=== PATIENT | male | born 1935 | race Caucasian/White ===

== ENCOUNTER → 2018-03-04 | Outpatient (CLI) | payer MEDICARE, BC | LOC: EDBD → M.MRI 11:14 | DX: S46.212A Strain of muscle, fascia and tendon of other parts of biceps, left arm, initial encounter (principal); M75.102 Unspecified rotator cuff tear or rupture of left shoulder, not specified as traumatic; M19.012 Primary osteoarthritis, left shoulder; X58.XXXA Exposure to other specified factors, initial encounter; Y93.89 Activity, other specified; Y92.89 Other specified places as the place of occurrence of the external cause; Y99.8 Other external cause status ==

== ENCOUNTER 2018-05-04 07:23 | Inpatient (IN) | payer MEDICARE, BC ==
[2018-04-23 09:19] LABS: ABSOLUTE EOSINOPHILS 0.2 thou/uL (0.0-0.7); ABSOLUTE LYMPHOCYTES 0.8 thou/uL (0.8-5.3); ABSOLUTE MONOCYTES 0.4 thou/uL (0.0-1.2); ABSOLUTE NEUTROPHILS 2.7 thou/uL (1.6-8.1); BASOPHILS 0.5 %; HEMATOCRIT 47.5 % (42.0-52.0); HEMOGLOBIN 15.7 gm/dL (14.0-18.0); LYMPHOCYTES 20.3 %; MCH 29.6 pg (26.0-34.0); MCHC 33.1 g/dL (28.0-37.0); MCV 89.5 fL (80.0-100.0); MONOCYTES 9.1 %; MPV 8.3 fl. (7.2-11.1); NUCLEATED RBCS 0 /100WBC; PLATELET COUNT* 189 thou/uL (150-400); POLYS 65.1 %; RBC 5.31 mil/uL (4.50-6.00); RDW-CV 16.7 % (10.5-14.5); WBC 4.1 thou/uL (4.0-11.0)
[2018-04-23 09:25] LABS: APTT 27.8 Seconds (25.0-31.3); PROTIME 10.2 Seconds (9.20-11.50)
[2018-04-23 10:08] LABS: ALBUMIN 3.4 g/dL (3.4-5.0); CALCIUM 8.7 mg/dL (8.5-10.1); CREATININE 1.2 mg/dL (0.6-1.3); POTASSIUM 3.9 mmol/L (3.5-5.1); TOTAL BILIRUBIN 0.6 mg/dL (<0.1-1.0); TOTAL PROTEIN 6.7 g/dL (6.4-8.2)
[2018-04-23 11:13] LABS: ESR (SEDRATE) 2 mm/hr (0-20)
--- NOTE | 2018-04-23 16:41 | EKG ---
[place] [address] ELECTROCARDIOGRAM REPORT Name: TRAN CALI Room: [facility]#: [id number] Admission: Attend Phys: Sal Bojorquez DO Discharge: Date of : 39 Report #: [id number] THIS REPORT FOR: //name// [facility] Test Date: 2018-04-23 Test Time: 09:25:26 Pat Name: TRAN CALI Department: Room: Gender: M Fleet Sales Associate: : 1935 Requested By: Sal Bojorquez Order Number: [id number] Trent MD: Adair Mitchell Measurements Intervals [place] Rate: 65 P: 53 OH: 191 QRS: 93 QRSD: 105 T: 7 QT: 397 QTc: 413 Interpretive Statements Sinus rhythm Right axis deviation No previous ECG available for comparison Electronically Signed On 04-23-2018 16:41:27 CASKET COVERER by Adair Mitchell [email or web address] <ELECTRONICALLY SIGNED> By: Adair Mitchell MD, [facility] 04/23/18 1641 0925 0925 Adair Mitchell MD, FACC /EPI
[~2018-05-04] VITALS: Ht 177.8 cm; Wt 77.1 kg
[~2018-05-04 07:23] MED LIST: B12INJ IM; CALCIUM WITH M1 EACH PO; CIALIS5 MG PO; ESTRADIOL IM; FLOMAX0.4 MG PO; MACROBID 100 M100 M1 PO; MULTIVITAMINS1 EAC7 PO; OMEGA 3 1,0001 EACH PO; PROSCAR 5MG TABL5 MG PO; PROSTATE HEALT1 EAC1 PO; TESTOSTERON100 MG/ML IM; UBIQUINOL100 MG PO; VITAMIN C1000 MG PO; VITAMIN D5000 UNIT PO; ZYRTEC10 M5 PO
[2018-05-04 07:30] VITALS: BP 144/71
[2018-05-04 14:05] VITALS: BP 118/59
--- NOTE | 2018-05-04 14:10 | NUR ---
PATIENT TRANSFERRED FROM PACU TO ROOM 110. ALERT AND ORIENTED. DROWSY. DENIES PAIN. POLAR CARE IN PLACE LEFT SHOULDER. DRESSING C/D/I. SCD'S AND TEDS IN PLACE. IVF INFUSING ORDERED. TOLERATING LIQUIDS. REFUSED LUNCH. EDUCATED ON FALL PREVENTION. BED ALARM SET. AND DAUGHTER AT BEDSIDE. CALL LIGHT WITHIN REACH. WILL CONTINUE TO MONITOR.
[2018-05-04 16:00] VITALS: BP 101/62
--- NOTE | 2018-05-04 16:28 | NUR ---
PATIENT REMAINS ALERT AND ORIENTED. DENIES PAIN. LEFT ARM IMMOBILIZER IN PLACE. RADIAL PULSES 2+. TOLERATING LIQUIDS. IVF INFUSING ORDERED. SLEEPING THIS AFTERNOON. SCD'S AND TEDS IN PLACE. VSS. CAPNO IN PLACE. O2 2L. AT BEDSIDE. CALL LIGHT WITHIN REACH. WILL CONTINUE TO MONITOR. BED ALARM SET.
[2018-05-04 19:45] VITALS: BP 94/60
--- NOTE | 2018-05-04 23:18 | NUR ---
RECIEVED REPORT AND ASSUMED CARE OF PT AT 1945. PT DENIES PAIN OR DISCOMFORT. PT REPORTS SENSATION RETURNING TO FINGERS. POLAR PACK TO SHOULDER. VITAL SIGNS WITHIN NORMAL LIMITS. CALL LIGHT IN REACH. PT USING APPROPRIATELY.
[2018-05-05 00:54] VITALS: BP 110/70
[2018-05-05 04:18] VITALS: BP 105/65
[2018-05-05 05:04] LABS: HEMATOCRIT 38.6 % (42.0-52.0); HEMOGLOBIN 12.8 gm/dL (14.0-18.0); MCH 29.5 pg (26.0-34.0); MCHC 33.1 g/dL (28.0-37.0); MCV 89.2 fL (80.0-100.0); MPV 8.2 fl. (7.2-11.1); NUCLEATED RBCS 0 /100WBC; PLATELET COUNT* 218 thou/uL (150-400); RBC 4.33 mil/uL (4.50-6.00); RDW-CV 16.1 % (10.5-14.5); WBC 11.4 thou/uL (4.0-11.0)
[2018-05-05 05:36] LABS: ALBUMIN 2.8 g/dL (3.4-5.0); CALCIUM 8.3 mg/dL (8.5-10.1); CREATININE 1.2 mg/dL (0.6-1.3); POTASSIUM 4.3 mmol/L (3.5-5.1); TOTAL BILIRUBIN 0.4 mg/dL (<0.1-1.0); TOTAL PROTEIN 5.6 g/dL (6.4-8.2)
[2018-05-05 06:06] LABS: ABSOLUTE LYMPHOCYTES 1.1 thou/uL (0.8-5.3); ABSOLUTE MONOCYTES 0.3 thou/uL (0.0-1.2); ABSOLUTE NEUTROPHILS 9.9 thou/uL (1.6-8.1); PLATELET ESTIMATE ADEQUATE
--- NOTE | 2018-05-05 06:06 | NUR ---
PT UP TO REST ROOM DURING NIGHT WITH STANDBY ASSISTANCE. PT AFEBRILE DURING NIGHT. HEART RATE AND BLOOD PRESSURE WITHIN DEFINED PARAMETERS. PT O O2 AT 4 LITERS TO MAINTAIN O2 SAT > 94%. PT'S PAIN CONTROLLED WITH ORAL PAIN MEDICATIONS DURING NIGHT. PT PROGRESSING TOWARD DISCHARGE GOALS. WILL CONTINUE PLAN OF CARE.
[2018-05-05 09:24] VITALS: BP 118/62
--- NOTE | 2018-05-05 13:34 | NUR ---
SPOKE TO THE PATIENT TO DISCUSS THE PATIENT'S HOME SITUATION, DISCHARGE PLANNING, AND TO INFORM OF THE ROLE OF CM. PATIENT ALERT, ORIENTED, AND INDEPENDENT WITH ADL'S. 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 PATIENT RESIDES AT HOME WITH SPOUSE AND SHE PLANS TO ASSIST HIM WITH CARES AT D/C. PATIENT OWNS 0 DME. PATIENT HAS NO HX OF HH OR SNF AND PLANS TO RETURN HOME INDEPENDENTLY AT D/C. PATIENT INFORMS THAT HE IS OPEN TO HH AT D/C AND WOULD LIKE A REFERRAL SENT TO [facility]. D/C MARZIPAN MOLDER SPOKE TO YARED WITH INTAKE FOR PINCONNING TO INFORM OF THE HH REFERRAL AND POSSIBLE D/C TOMORROW, AND FAXED THE PATIENT'S FACESHEET AND H&P. CM WILL REMAIN AVAILABLE TO ASSIST AND FOLLOW NEEDED.
[2018-05-05 15:26] VITALS: BP 118/64
--- NOTE | 2018-05-05 16:05 | NUR ---
PATIENT REMAINS ALERT AND ORIENTED. PAIN CONTROLLED. SHOWERED WITH OT. PARTICIPATED WITH PT. UP STANDBY ASSIST. VOIDING PER TOILET. BM LAST NIGHT. DRESSING TO LEFT SHOULDER C/D/I. POLAR CARE AND IMMOBILIZER IN PLACE. AT BEDSIDE. BED ALARM IN USE. EDUCATED ON FALL PREVENTION. CALL LIGHT WITHIN REACH. WILL CONTINUE TO MONITOR.
[2018-05-05 21:00] VITALS: BP 108/54
--- NOTE | 2018-05-05 22:48 | NUR ---
INITAL ASSESMENT COMPLETED AT 2100. PT REPORTED PAIN IN LEFT SHOULDER AT THAT TIME. PRN NORCO AND HS MEDS GIVEN AT THAT TIME. CALL LIGHT IN REACH, PT RESTING QUIETLY.
[2018-05-06 08:21] VITALS: BP 112/62
[2018-05-06] MEDS ORDERED: NORCO 5-325 TA1 EACH PO (09:34)
[2018-05-06] MEDS ORDERED: OXYCODONE HCL 55 MG PO (09:35)
[2018-05-06] MEDS ORDERED: ASPIRIN325 PO (09:36)
[2018-05-06 09:38] VITALS: BP 112/62
[2018-05-06 11:49] VITALS: BP 119/65
[2018-05-06] MEDS ORDERED: SENNA PLUS TAB1 EACH PO (11:49)
[2018-05-06 12:10] VITALS: BP 112/62
--- NOTE | 2018-05-06 12:30 | NUR ---
TERMITE EXTERMINATOR HELPER SPOKE TO THE PATIENT TO DISCUSS DISCHARGE PLANNING, HH, AND ELIQUIS PRESCRIPTION AT D/C. PATIENT REQUEST MEDICATION ASSISTANCE TO FILL ELIQUIS HE HAS NO PRESCRITION COVERAGE. RN CALLED IN ELIQUIS TO PATIENT'S PHARMACY. D/C INDIVIDUAL SMALL GROUP INSTRUCTOR CALLED IN 30 EMILE FREE CO-PAY CARD TO THE PATIENT'S PHARMACY, AND CONFIRMED THAT THE PATIENT HAS A $0 CO-PAY FOR THE ELIQUIS. D/C INDIVIDUAL SMALL GROUP INSTRUCTOR INFORMED THE RN AND THE PATIENT OF THE $0 CO-PAY, AND BOTH ARE IN AGREEMENT. D/C INDIVIDUAL SMALL GROUP INSTRUCTOR CONTACTED [facility] TO INFORM OF THE PATIENT'S D/C, AND FAXED THE PATIENT'S D/C ORDERS. [facility] WILL CONTACT THE PATIENT TO ARRANGE VISIT.CM WILL REMAIN AVAILABLE TO ASSIST AND FOLLOW NEEDED.
[2018-05-06] MEDS ORDERED: ELIQUIS2.5 MG PO (12:51)
--- NOTE | 2018-05-06 15:18 | NUR ---
PATIENT DISCHARGED TO HOME WITH HOME HEALTH AT THIS TIME. IV DISCONTINUED. SCRIPTS GIVEN. PATIENT AND SPOUSE VERBALIZE UNDERSTANDING OF DC INSTRUCTIONS.
--- NOTE | 2018-05-11 09:17 | OP ---
[address] [address] OPERATIVE REPORT Name: VIRAJTRAN Lina Room: [address]#: [id number] Admission: 05/04/18 Attend Phys: Americo Guajardo Discharge: 05/06/18 Date of : 39 Report #: [id number] THIS REPORT FOR: //name// CC: Sal Joseph DATE OF SERVICE: 05/04/2018 PREOPERATIVE DIAGNOSIS: Rotator cuff arthropathy, left shoulder. POSTOPERATIVE DIAGNOSIS: Rotator cuff arthropathy, left shoulder. PROCEDURE: Left reverse total shoulder arthroplasty. SURGEON: Sal Bojorquez DO. DENTAL COORDINATOR: Malcom Kruse DO. SECOND EXPLOSIVES OPERATOR: Kehinde Ventura DO. ESTIMATED BLOOD LOSS: 100 mL. COMPLICATIONS: None. DRAINS: None. SPECIMEN REMOVED: None. ANESTHESIA: General with interscalene block. ANTIBIOTICS: Ancef 2 grams IV preoperatively. ORTHOPEDIC IMPLANTS: A 28 Tornier reverse total shoulder arthroplasty system utilizing a size 2 humeral stem with 42 x 30 mm glenosphere and baseplate with low offset tray and +6 polyethylene liner. CONDITION OF PATIENT: Stable to PACU. INDICATIONS: The patient is a pleasant 82-year-old male, seen in my clinic regarding left shoulder pain he has had for quite some time. He had a previous rotator cuff repair quite some time ago. He has had recurrent pain. Repeat MRI demonstrated a rotator cuff tear. He did have x-rays consistent with rotator cuff arthropathy. Due to his age, MRI and x-ray findings, I discussed potential benefit of left reverse total shoulder arthroplasty. I discussed procedure, risks, benefits, complications, indications in detail with him. Risks discussed include but not limited to infection, neurovascular injury, continued or [address] [address] OPERATIVE REPORT Name: TRAN CALI Room: [address]#: [id number] Admission: 05/04/18 Attend Phys: Americo Guajardo Discharge: 05/06/18 Date of : 39 Report #: [id number] worsening pain, no improvement in symptoms, hardware failure, fracture dislocation, DVT, PE and/or anesthesia complications. He did express understanding and wished to proceed with surgery. DESCRIPTION OF PROCEDURE: After consent was obtained, the patient was taken to the operative suite and placed in supine position on the operating table. He was given the benefit of general anesthesia, he was placed in beachchair position, all bony prominences were well padded. Left upper extremity was then sterilely prepped and draped in usual fashion. Preoperative timeout was obtained to confirm the correct patient, procedure and operative site. Surgery began with a standard deltopectoral incision approximately 10 cm in length. Blunt dissection was taken down to the level of the cephalic vein. This was isolated and mobilized laterally throughout the case and protected with blunt retractors throughout the case. The clavipectoral fascia was then incised. Deltoid adhesions were bluntly dissected. A Triplett retractor was placed over the humeral head. Upon evaluating humeral head, he did have a severe rotator cuff delamination and essentially only his subscapularis was intact. At this time, biceps tenotomy was performed, and the subscapularis was elevated off the lesser tuberosity with electrocautery. Hohmann retractor was placed on the inferior humeral neck to protect neurovascular structures throughout the case. The glenohumeral joint was then easily dislocated, and the humeral head was inspected. He had osteophytes throughout as well as eburnation of the bone. We then used a neck cutting guide, and an appropriate proximal femoral neck cut was made. We then began preparing the humerus and sequential broaching was performed, progressed up to a size 2. This gave us a good fit and fill of proximal humerus with good rotational stability. Attention was then turned to the glenoid. Circumferential glenoid release was performed, and labrum was excised with electrocautery. Retractors were placed full visualization, which gave us a good look at the glenoid. This also was eburnated. We then placed our guide pin just inferior to the central marking of the glenoid. This was then over reamed to appropriate depth. We then drilled our central peg hole to approximately 30 mm. We then placed our glenoid baseplate, a 30 mm length screw. This did have good solid fit. We then placed two locking screws, one inferior and one superior of appropriate length. We then placed our glenosphere, and this was locked in place with good stability. Attention was then returned to the humerus. Trial reduction was performed with 6 polyethylene liner, and this did give us good fit and good stability throughout range of motion. The shoulder again dislocated, trial component was removed. Final size 2 stem was impacted in place. Again, trial reduction was performed and a +6 liner was chosen. This was placed on a clean humeral tray and locked in place. The shoulder was then reduced and taken through range of motion, had good stability throughout all range of motion, no subluxation or dislocation noted throughout all range of motion. The wound was then thoroughly irrigated with sterile saline. Deltopectoral interval was loosely reapproximated with a #1 Vicryl, subcutaneous tissues closed with 2-0 Vicryl in [place] [address] OPERATIVE REPORT Name: TRAN CALI Room: [address] IN [facility].#: [id number] Admission: 05/04/18 Attend Phys: Americo Guajardo Discharge: 05/06/18 Date of : 39 Report #: [id number] interrupted fashion, followed by running Monocryl stitch on the skin. This was covered with Dermabond, was allowed to dry and Mepilex silver dressing. He did tolerate the procedure well without complications. He was taken to recovery room in stable condition. All needle and sponge counts were correct x 2 at the end of the procedure. <ELECTRONICALLY SIGNED> By: Sal Bojorquez DO 05/11/18 0917 0823 [id number] Bojorquez DO /nt
== END 2018-05-06 15:23 | disposition home health service (06) | DRG 483 ==
LOC: M.SUR 07:23 → M.ORTHSURG 12:07
PROVIDERS: Family Medicine; Orthopaedic Surgery; ADMIT Internal Medicine
PROC: 0RRK00Z Replacement of Left Shoulder Joint with Reverse Ball and Socket Synthetic Substitute, Open Approach (ICD-10-PCS; principal; 2018-05-04)
DX: M75.102 Unspecified rotator cuff tear or rupture of left shoulder, not specified as traumatic (principal); N39.0 Urinary tract infection, site not specified; N18.3 Chronic kidney disease, stage 3 (moderate); M19.90 Unspecified osteoarthritis, unspecified site; N40.0 Benign prostatic hyperplasia without lower urinary tract symptoms; I77.89 Other specified disorders of arteries and arterioles; Z79.899 Other long term (current) drug therapy; Z98.41 Cataract extraction status, right eye; Z98.42 Cataract extraction status, left eye